=== PATIENT | male | born 1995 | race African-American/Black ===

== ENCOUNTER 2025-04-27 10:04 | Emergency (ER) | payer MEDICAID ==
[~2025-04-27] VITALS: Ht 175.3 cm; Wt 70.3 kg
[2025-04-27] MEDS ORDERED: IBUP-1955 PO (10:18)
[2025-04-27] MEDS ORDERED: ALBU18HF2 INH (10:18)
[2025-04-27] MEDS ORDERED: LIDO30AD10 TP (10:18)
[2025-04-27 11:29] VITALS: BP 118/75; TEMP 98.3; O2SAT 96
== END 2025-04-27 11:30 | disposition home or self-care (01) ==
LOC: ER 10:07
DX: M54.50 Low back pain, unspecified (principal); J45.909 Unspecified asthma, uncomplicated; Z76.0 Encounter for issue of repeat prescription; Z59.00 Homelessness unspecified; Z79.899 Other long term (current) drug therapy